=== PATIENT | male | born 1960 | race Caucasian/White ===

== ENCOUNTER 2022-03-02 21:55 | Observation (INO) | payer SELFPAY ==
[2022-03-02] MEDS ORDERED: Nitroglycerin 0.4 MG TAB (25 Tab Bottle) SL PRN (23:54)
[2022-03-02] MEDS ORDERED: Ondansetron PF 4 MG/2 ML Vial IVP PRN (23:54)
[2022-03-02] MEDS ORDERED: Acetaminophen 325 MG TAB PO PRN (23:54)
[2022-03-03 00:59] VITALS: BMI 28.8
[2022-03-03 01:03] LABS: Troponin I Less than 0.010 ng/mL (< 0.028)
[2022-03-03 05:07] LABS: #Basophils 0.1 thou/uL (0.0-0.2); #Eosinphils 0.7 thou/uL (0.0-0.7); #Lymphocytes 3.6 thou/uL (1.20-3.40); #Neutrophils 4.3 thou/uL (1.40-6.50); %Basophils 0.8 % (0.0-1.0); %Eosinophils 7.5 % (0.0-10.0); %Lymphocytes 37.1 % (21.0-51.0); %Monocytes 10.7 % (0.0-10.0); %Neutrophils 43.9 % (42.0-75.0); Hemoglobin 13.1 g/dL (14.0-18.0); Mean Corpuscular HGB CONC 34.1 g/dL (32.0-36.0); Mean Corpuscular Hemoglobin 31.2 pg (27.0-31.0); Mean Corpuscular Volume 91.3 fL (78.0-98.0); Mean Platelet Volume 6.8 fL (7.4-10.4); Platelet Count 345 thou/uL (130-400); White Blood Cell (WBC) Count 9.7 thou/uL (4.8-10.8)
[2022-03-03 05:30] LABS: Troponin I Less than 0.010 ng/mL (< 0.028)
[2022-03-03 05:31] LABS: Anion Gap 13 mmol/L (10-20); BUN (Urea Nitrogen) 15 mg/dL (8.4-25.7); Calc. Creatinine Clearance 115 mL/min (70-130); Calcium 8.6 mg/dL (7.8-10.44); Carbon Dioxide 22 mmol/L (23-31); Cardiac Risk 3.8 (Less than 4.5); Chloride 109 mmol/L (98-107); Cholesterol 132 mg/dl (< 200 Desired); Estimated GFR 89; Glucose 101 mg/dL (80-115); HDL Cholesterol 35 mg/dL (>60 Neg Risk); LDL Cholesterol, Calculated 48 mg/dL; Potassium 4.3 mmol/L (3.5-5.1); Sodium 140 mmol/L (136-145); Triglycerides 244 mg/dL (Less than 150)
[2022-03-03 05:52] LABS: Hemoglobin A1c 5.1 % (4.0-6.0)
[2022-03-03] MEDS ORDERED: Regadenoson 0.4 MG/5 ML SYRINGE ONE (08:10)
[2022-03-03] MEDS ORDERED: Enoxaparin Sodium 40 MG/0.4 ML SYRINGE SC SCH (09:00)
[2022-03-03 09:20] VITALS: TEMP 97.4
[2022-03-03 12:40] VITALS: BP 189/110
[2022-03-03] MEDS ORDERED: Albuterol 200 PUFF (6.7GM INHALER) INH PRN (12:59)
[2022-03-03] MEDS ORDERED: Betamethasone 0.1% Cream 15 GM TUBE TOP SCH (21:00)
[2022-03-03] MEDS ORDERED: Carvedilol 25 MG TAB PO SCH (21:00)
[2022-03-03] MEDS ORDERED: Rosuvastatin 10 MG TAB PO SCH (21:00)
[2022-03-04] MEDS ORDERED: Lisinopril 20 MG TAB PO SCH (09:00)
== END 2022-03-03 14:05 | disposition home or self-care (01) ==
LOC: 2SW 21:55
PROVIDERS: ADMIT Family Medicine; ATTEND Family Medicine
DX: R07.89 Other chest pain (principal); I10 Essential (primary) hypertension; E78.5 Hyperlipidemia, unspecified; J44.9 Chronic obstructive pulmonary disease, unspecified; I45.10 Unspecified right bundle-branch block; Z87.891 Personal history of nicotine dependence; Z79.899 Other long term (current) drug therapy; Z88.0 Allergy status to penicillin; Z20.822 Contact with and (suspected) exposure to COVID-19
CPT/HCPCS: 36415; 78452; 80048; 80061; 83036; 84484; 85025; 93017; 94760; A9500; G0378; J2785; U0003; U0005